=== PATIENT | male | born 1975 | race Caucasian/White ===

== ENCOUNTER 2018-02-18 00:48 | Observation (INO) | payer OTHER ==
[2018-02-18] MEDS ORDERED: NS 1,000 ML IV ONE ×3 (00:51→03:12)
--- NOTE | 2018-02-18 00:53 | EDPHY ---
H & P Time Seen by Provider: 02/18/18 00:52 HPI/ROS: HPI CHIEF COMPLAINT: Nausea vomiting, dehydration, syncope, IRONMAN HISTORY OF PRESENT ILLNESS: A 42-year-old male, he completed the [employer] man race today, he finished around 10:30 p.m. Or approximately an hour and half ago, he states while doing the swimming part of the race early this morning he thinks he may have aspirated some water, however he completed the race after the races over he felt dehydrated went to the medical tend he started having vomiting and felt globally weak. He did have a syncopal episode. He denies any chest pain or significant shortness of breath. EMS was called to the [place] [id number] and he was transported to the emergency room. 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 Past Surgical History: Denies surgical history Social History: Denies daily use of drugs alcohol tobacco. Family History: Bed noncontributory ROS REVIEW OF SYSTEMS: A comprehensive 10 point review of systems is otherwise negative aside from elements mentioned in the history of present illness. Exam Constitutional appears dehydrated, triage nursing summary reviewed, vital signs reviewed, awake/alert. Eyes normal conjunctivae and sclera, EOMI, PERRLA. HENT normal inspection, atraumatic, dry mucus membranes, no epistaxis, neck supple/ no meningismus, no raccoon eyes. Respiratory clear to auscultation bilaterally, normal breath sounds, no respiratory distress, no wheezing. Cardiovascular rate normal, regular rhythm, no murmur, no edema, distal pulses normal. Gastrointestinal soft, non-tender, no rebound, no guarding, normal bowel sounds, no distension, no pulsatile mass. Genitourinary no CVA tenderness. Musculoskeletal no midline vertebral tenderness, full range of motion, no calf swelling, no tenderness of extremities, no meningismus, good pulses, neurovascularly intact. Skin pink, warm, & dry, no rash, skin atraumatic. Neurologic awake, alert and oriented x 3, AAOx3, moves all 4 extremities equally, motor intact, sensory intact, CN II-XII intact, normal cerebellar, normal vision, normal speech. Psychiatric normal mood/affect. Heme/Lymph/Immune no lymphadenopathy. Differential Diagnosis: Includes but is not limited to in a particular order dehydration, electrolyte disturbance, rhabdomyolysis, aspiration, aspiration pneumonia Medical Decision Making: Plan for this patient IV establishment IV fluid bolus 1 L normal saline, check electrolytes sodium, chest x-ray, EKG urinalysis, check CK and re-evaluate. Re-evaluation: EKG interpretation by me on record in [employer] system. Impression time of EKG 57, sinus rhythm rate of 75 EKG appears to be WPW morphology. This is already known. Patient states he has a history of WPW asymptomatic. No acute ischemic change. 0218AM: Patient resting comfortably. Blood work has been reviewed shows rhabdomyolysis, dehydration, positive troponin. EKG shows the PW pattern. Chest x-ray one view reviewed no evidence of aspiration. Given the patient's elevated CK, syncopal episode, WPW on EKG patient be admitted to the hospital for observation and rehydration. Spoke with the hospitalist service Dr. El, Agrees to admit. Source: Patient, EMS Constitutional: Initial Vital Signs Temperature (C) 36.8 C 02/18/18 00:51 Heart Rate 77 02/18/18 00:51 Respiratory Rate 16 02/18/18 00:51 Blood Pressure 111/84 H 02/18/18 00:51 O2 Sat (%) 98 02/18/18 00:51 O2 Delivery Mode Room Air Allergies/Adverse Reactions: No Known Allergies Allergy (Unverified 02/18/18 00:55) Medical Decision Making - Data Points Laboratory Results: Laboratory Results 02/18/18 00:53 02/18/18 00:53 02/18/18 02/18/18 00:53 00:53 WBC 14.46 10^3/uL H 10^3/uL (3.80-9.50) RBC 4.46 10^6/uL 10^6/uL (4.40-6.38) Hgb 13.7 g/dL g/dL (13.7-17.5) Hct 39.1 % L % (40.0-51.0) MCV 87.7 fL fL (81.5-99.8) MCH 30.7 pg pg (27.9-34.1) MCHC 35.0 g/dL g/dL (32.4-36.7) RDW 11.9 % % (11.5-15.2) Plt Count 175 10^3/uL 10^3/uL (150-400) MPV 10.0 fL fL (8.7-11.7) Neut % (Auto) 85.7 % H % (39.3-74.2) Lymph % (Auto) 5.1 % L % (15.0-45.0) [place] % (Auto) 8.5 % % (4.5-13.0) Eos % (Auto) 0.1 % L % (0.6-7.6) Baso % (Auto) 0.3 % % (0.3-1.7) Nucleat RBC Rel Count 0.0 % % (0.0-0.2) Absolute Neuts (auto) 12.40 10^3/uL H 10^3/uL (1.70-6.50) Absolute Lymphs (auto) 0.74 10^3/uL L 10^3/uL (1.00-3.00) Absolute Monos (auto) 1.23 10^3/uL H 10^3/uL (0.30-0.80) Absolute Eos (auto) 0.01 10^3/uL L 10^3/uL (0.03-0.40) Absolute Basos (auto) 0.04 10^3/uL 10^3/uL (0.02-0.10) Absolute Nucleated RBC 0.00 10^3/uL 10^3/uL (0-0.01) Immature Gran % 0.3 % % (0.0-1.1) Immature Gran # 0.04 10^3/uL 10^3/uL (0.00-0.10) Sodium 133 mEq/L L mEq/L (135-145) Potassium 4.0 mEq/L mEq/L (3.3-5.0) Chloride 97 mEq/L mEq/L (97-110) Carbon Dioxide 24 mEq/l mEq/l (22-31) Anion Gap 12 mEq/L mEq/L (8-16) BUN 15 mg/dL mg/dL (7-23) Creatinine 1.0 mg/dL mg/dL (0.7-1.3) Estimated GFR > 60 Glucose 69 mg/dL L mg/dL (70-100) Calcium 8.4 mg/dL L mg/dL (8.5-10.4) Magnesium 1.7 mg/dL mg/dL (1.6-2.3) Total Bilirubin 2.4 mg/dL H mg/dL (0.1-1.4) Conjugated Bilirubin 0.6 mg/dL H mg/dL (0.0-0.5) Unconjugated Bilirubin 1.8 mg/dL H mg/dL (0.0-1.1) AST 118 IU/L H IU/L (17-59) ALT 64 IU/L IU/L (21-72) Alkaline Phosphatase 61 IU/L IU/L (38-126) Creatine Kinase 5663 IU/L H IU/L (0-224) CK-MB (CK-2) Fraction 26.30 ng/mL H ng/mL (0.00-4.55) CK-MB (CK-2) % 0.5 % % (0.0-4.0) Creatine Kinase Interp NEGATIVE (NEGATIVE) Troponin I 0.054 ng/mL H ng/mL (0.000-0.034) Total Protein 5.6 g/dL L g/dL (6.3-8.2) Albumin 3.5 g/dL g/dL (3.5-5.0) Medications Given: Discontinued Medications Sodium Chloride (Ns) 1,000 mls @ 0 mls/hr IV EDNOW ONE; Wide Open PRN Reason: Protocol Stop: 02/18/18 00:52 Last Admin: 02/18/18 00:58 Dose: 1,000 mls Sodium Chloride (Ns) 1,000 mls @ 0 mls/hr IV ONCE ONE PRN Reason: Wide Open Stop: 02/18/18 01:42 Last Admin: 02/18/18 01:49 Dose: 1,000 mls Departure - Departure Disposition: [facility] Inpatient Acute Clinical Impression: Dehydration Rhabdomyolysis Qualifiers: Rhabdomyolysis type: non-traumatic Qualified Code(s): M62.82 - Rhabdomyolysis Syncope Qualifiers: Syncope type: unspecified Qualified Code(s): R55 - Syncope and collapse Condition: Fair
--- NOTE | 2018-02-18 01:00 | CPEKG ---
Heart Rate: 75 RR Interval: 800 P-R Interval: 120 QRSD Interval: 124 QT Interval: 436 QTC Interval: 487 P [place]: 71 QRS [place]: -26 T Wave [place]: 44 EKG Severity - ABNORMAL ECG - EKG Impression: SINUS RHYTHM EKG Impression: VENT PREEXCITATION, LEFT ACCESSORY PATHWAY Electronically Signed By: Lester Lou 18-Feb-2018 06:54:33
[2018-02-18 01:11] LABS: PLATELET COUNT 175 10^3/uL (150-400)
[2018-02-18 01:34] LABS: CREATINE KINASE 5663 IU/L (0-224)
[2018-02-18] MEDS ORDERED: ACETAMINOPHEN 325 MG TAB PO PRN (01:57)
[2018-02-18] MEDS ORDERED: ONDANSETRON 4 MG/2 ML VIAL IVP PRN (01:57)
[2018-02-18] MEDS ORDERED: ONDANSETRON DISINTEGRATING 4 MG TAB PO PRN (01:57)
--- NOTE | 2018-02-18 04:34 | PDGENHP ---
History and Physical - Chief Complaint Syncope - History of Present Illness 42 yo M w/ hx of WPW p/w syncope. Patient completed the Iron[employer] today. Afterwards he felt weak so he went to the medical tent. While there he felt nauseous, dizzy, and may have had a syncopal event. He does not recall the details well but EMS was called and he was brought to the ED. At the time of my evaluation patient is feeling much better. Laboratory work-up notable for mild hyponatremia, indeterminate troponin, and elevated CK. He tells me he has never had any symptoms related to WPW, it was an incidental finding on ECG. History Information - Allergies/Home Medication List Allergies/Adverse Reactions: No Known Allergies Allergy (Unverified 02/18/18 00:55) I have personally reviewed and updated: family history, medical history - Past Medical History Additional medical history: [facility] Parkinson [place] - Surgical History Reports: hernia repair - Family History Positive for: CAD, hypertension - Social History Smoking Status: Never smoked Review of Systems Review of Systems: ROS: 10pt was reviewed & negative except for what was stated in HPI & below Physical Exam Physical Exam: Temp Pulse Resp BP Pulse Ox 36.9 C 80 17 112/67 94 02/18/18 03:45 02/18/18 03:45 02/18/18 03:45 02/18/18 03:45 02/18/18 03:45 Constitutional: no apparent distress, not in pain Eyes: PERRL, EOMI Ears, Nose, Mouth, Throat: moist mucous membranes, no oral mucosal ulcers Cardiovascular: regular rate and rhythym, no murmur, rub, or gallop Gastrointestinal: normoactive bowel sounds, soft, non-tender abdomen Skin: warm, normal color Musculoskeletal: full muscle strength, no muscle tenderness Neurologic: AAOx3, CN II-XII Intact Psychiatric: interacting appropriately, not anxious Lab Data & Imaging Review 02/18/18 00:53 02/18/18 00:53 WBC 14.46 10^3/uL (3.80-9.50) H 02/18/18 00:53 RBC 4.46 10^6/uL (4.40-6.38) 02/18/18 00:53 Hgb 13.7 g/dL (13.7-17.5) 02/18/18 00:53 Hct 39.1 % (40.0-51.0) L 02/18/18 00:53 MCV 87.7 fL (81.5-99.8) 02/18/18 00:53 MCH 30.7 pg (27.9-34.1) 02/18/18 00:53 MCHC 35.0 g/dL (32.4-36.7) 02/18/18 00:53 RDW 11.9 % (11.5-15.2) 02/18/18 00:53 Plt Count 175 10^3/uL (150-400) 02/18/18 00:53 MPV 10.0 fL (8.7-11.7) 02/18/18 00:53 Neut % (Auto) 85.7 % (39.3-74.2) H 02/18/18 00:53 Lymph % (Auto) 5.1 % (15.0-45.0) L 02/18/18 00:53 [place] % (Auto) 8.5 % (4.5-13.0) 02/18/18 00:53 Eos % (Auto) 0.1 % (0.6-7.6) L 02/18/18 00:53 Baso % (Auto) 0.3 % (0.3-1.7) 02/18/18 00:53 Nucleat RBC Rel Count 0.0 % (0.0-0.2) 02/18/18 00:53 Absolute Neuts (auto) 12.40 10^3/uL (1.70-6.50) H 02/18/18 00:53 Absolute Lymphs (auto) 0.74 10^3/uL (1.00-3.00) L 02/18/18 00:53 Absolute Monos (auto) 1.23 10^3/uL (0.30-0.80) H 02/18/18 00:53 Absolute Eos (auto) 0.01 10^3/uL (0.03-0.40) L 02/18/18 00:53 Absolute Basos (auto) 0.04 10^3/uL (0.02-0.10) 02/18/18 00:53 Absolute Nucleated RBC 0.00 10^3/uL (0-0.01) 02/18/18 00:53 Immature Gran % 0.3 % (0.0-1.1) 02/18/18 00:53 Immature Gran # 0.04 10^3/uL (0.00-0.10) 02/18/18 00:53 Sodium 133 mEq/L (135-145) L 02/18/18 00:53 Potassium 4.0 mEq/L (3.3-5.0) 02/18/18 00:53 Chloride 97 mEq/L (97-110) 02/18/18 00:53 Carbon Dioxide 24 mEq/l (22-31) 02/18/18 00:53 Anion Gap 12 mEq/L (8-16) 02/18/18 00:53 BUN 15 mg/dL (7-23) 02/18/18 00:53 Creatinine 1.0 mg/dL (0.7-1.3) 02/18/18 00:53 Estimated GFR > 60 02/18/18 00:53 Glucose 69 mg/dL (70-100) L 02/18/18 00:53 Calcium 8.4 mg/dL (8.5-10.4) L 02/18/18 00:53 Magnesium 1.7 mg/dL (1.6-2.3) 02/18/18 00:53 Total Bilirubin 2.4 mg/dL (0.1-1.4) H 02/18/18 00:53 Conjugated Bilirubin 0.6 mg/dL (0.0-0.5) H 02/18/18 00:53 Unconjugated Bilirubin 1.8 mg/dL (0.0-1.1) H 02/18/18 00:53 AST 118 IU/L (17-59) H 02/18/18 00:53 ALT 64 IU/L (21-72) 02/18/18 00:53 Alkaline Phosphatase 61 IU/L (38-126) 02/18/18 00:53 Creatine Kinase 5663 IU/L (0-224) H 02/18/18 00:53 CK-MB (CK-2) Fraction 26.30 ng/mL (0.00-4.55) H 02/18/18 00:53 CK-MB (CK-2) % 0.5 % (0.0-4.0) 02/18/18 00:53 Creatine Kinase Interp NEGATIVE (NEGATIVE) 02/18/18 00:53 Troponin I 0.054 ng/mL (0.000-0.034) H 02/18/18 00:53 Total Protein 5.6 g/dL (6.3-8.2) L 02/18/18 00:53 Albumin 3.5 g/dL (3.5-5.0) 02/18/18 00:53 Urine Color YELLOW 02/18/18 02:50 Urine Appearance CLEAR 02/18/18 02:50 Urine pH 5.0 (5.0-7.5) 02/18/18 02:50 Ur Specific [place] 1.018 (1.002-1.030) 02/18/18 02:50 Urine Protein 1+ (NEGATIVE) H 02/18/18 02:50 Urine Ketones 2+ (NEGATIVE) H 02/18/18 02:50 Urine Blood 1+ (NEGATIVE) H 02/18/18 02:50 Urine Nitrate NEGATIVE (NEGATIVE) 02/18/18 02:50 Urine Bilirubin NEGATIVE (NEGATIVE) 02/18/18 02:50 Urine Urobilinogen NEGATIVE EU (0.2-1.0) 02/18/18 02:50 Ur Leukocyte Esterase NEGATIVE (NEGATIVE) 02/18/18 02:50 Urine RBC NONE SEEN /hpf (0-3) 02/18/18 02:50 Urine WBC 1-3 /hpf (0-3) 02/18/18 02:50 Ur Epithelial Cells TRACE /lpf (NONE-1+) 02/18/18 02:50 Hyaline Casts 1-5 /lpf (0-1) 02/18/18 02:50 Urine Mucus TRACE /lpf (NONE-1+) 02/18/18 02:50 Urine Glucose NEGATIVE (NEGATIVE) 02/18/18 02:50 Visualized and Interpreted Chest x-ray results: Yes Chest X-Ray results: no infiltrate Visualized and Interpreted EKG results: Yes EKG Interpretation: Positive for: other (Short [place], delta wave) Assessment & Plan Assessment: 42 yo M w/ WPW completed Ironman today and suffered syncopal episode. Plan: 1. Syncope - Suspect multifactorial from dehydration, exhaustion, and electrolyte abnormalities related to extreme exertion. Patient feels improved after 3 L IVF. - Admit for observation noting hx of WPW - Monitor on telemetry 2. Hx WPW - Asymptomatic, ECG notable for shortened [place] and delta wave. - Monitor on telemetry 3. Indeterminate troponin - Denies chest pain, most likely exertional. - Trend enzymes 4. Elevated CK- Exertional, will trend. S/p 3 L IVF. Diet - Regular Code - Full Ppx - Low risk Dispo - Admit under observation status
[2018-02-18 07:46] LABS: PLATELET COUNT 182 10^3/uL (150-400)
[2018-02-18 07:58] VITALS: BP 107/67
[2018-02-18 08:14] LABS: CREATINE KINASE 4539 IU/L (0-224)
--- NOTE | 2018-02-18 09:46 | HOSPPROG ---
Hospitalist Progress Note Assessment/Plan: 42 yo M w possible syncope after Ironman home today see dc summary Subjective: tele: no events (interp by me). feels better Objective: Vital Signs Temp Pulse Resp BP Pulse Ox 37.0 C 80 12 107/67 94 02/18/18 07:09 02/18/18 07:09 02/18/18 07:09 02/18/18 07:09 02/18/18 07:09 Laboratory Results 02/18/18 07:32 02/18/18 07:32 02/17/18 02/18/18 02/19/18 05:59 05:59 05:59 Intake Total 3000 Balance 3000 - Physical Exam Constitutional: no apparent distress, appears nourished Eyes: PERRL, anicteric sclera Ears, Nose, Mouth, Throat: moist mucous membranes, hearing normal Cardiovascular: regular rate and rhythym, no murmur, rub, or gallop, No systolic murmur Respiratory: no respiratory distress, no rales or rhonchi Gastrointestinal: normoactive bowel sounds, soft, non-tender abdomen Genitourinary: no bladder fullness, No thomas in urethra Skin: warm, normal color Musculoskeletal: full muscle strength, no muscle tenderness Neurologic: AAOx3, sensation intact bilaterally Psychiatric: interacting appropriately, not anxious Lymph, Heme, Immunologic: no cervical LAD ICD10 Worksheet Patient Problems: Problems Problem Status Onset Dehydration Acute Rhabdomyolysis Acute Syncope Acute
--- NOTE | 2018-02-18 10:04 | ASDISCHSUM ---
Discharge Information Plan Status:Home with No Needs Medically Cleared to Leave:02/18/2018 Discharge Date:02/18/2018 CM D/C Disposition:Home, Routine, Self-Care ADT D/C Disposition: Projected Discharge Date:02/18/2018 Transportation at D/C: Discharge Delay Reason: Follow-Up Date:02/18/2018 Discharge Slot: Final Diagnosis: Placement Information Patient Contact Information Contact Name:ELBA Relationship: Address: Work Phone: City: [facility] Phone: State/GotGame Code: Email: Financial Information Financial Class:Self-Pay Primary Plan Desc:SELF PAY Primary Plan Number: Secondary Plan Desc: Secondary Plan Number: Assessment Information LACE LACE Acuity / Level of Answers: No Care: Did the patient have an inpatient admission? Comorbidities - select Answers: Other Notes: asymptomatic blakely all that apply sagar jacobo # of Emergency department Answers: 1-2 visits in the last 6 months Score: 2 Date Signed: 02/18/2018 10:03 AM Electronically Signed By:Juliana Watson RN Case Management Discharge Plan Note Case Management Discharge Discharge Order Complete? Answers: Yes Patient to Obtain Answers: Independently Medications Discharge Comments Notes: 02/18/2018 Case Management Note After completing the Ironman, pt had an epidose of syncope. Admitted for observation. There are no case management d/c needs identified. Pt discharged independent with follow up as directed. Date Signed: 02/18/2018 10:02 AM Electronically Signed By:Juliana Watson RN Intervention Information
--- NOTE | 2018-02-18 10:11 | GDS ---
[f rep st] DISCHARGE SUMMARY DISCHARGE DIAGNOSES: 1. Possible syncope following the iron man. 2. Mild hyponatremia. 3. Elevated CK not meeting definition of rhabdomyolysis. 4. Indeterminate troponin. 5. History of Mrpqu-Twjcdrycr-Ctgee syndrome. HOSPITAL COURSE: Please see admission history and physical by Dr. David El. The patient had possible syncope. He was wearing a leg compression recovery device. As he leaned back he felt nauseated, vomited and became confused but did not clearly have syncope. He showed up, he had a nonischemic EKG and no events on telemetry overnight. His CK was mildly elevated at 5000, trended down to 4500. His creatinine was actually 1.0, sodium modestly low at 133, that liliana to 139, troponin 0.54. He has had numerous dobutamine stress echoes given his Uywcm-Dkvinmvnq-Vzlga. He had no events on telemetry. He is discharged home. He is advised to seek care if he has exertional chest pain. /[id number]/MODL MTDD
== END 2018-02-18 11:03 | disposition home or self-care (01) ==
LOC: F2W 03:30
PROVIDERS: ADMIT Student in an Organized Health Care Education/Training Program; ATTEND Student in an Organized Health Care Education/Training Program
DX: E87.1 Hypo-osmolality and hyponatremia (principal); R11.2 Nausea with vomiting, unspecified; R74.8 Abnormal levels of other serum enzymes; I45.6 Pre-excitation syndrome
CPT/HCPCS: 71045; 93005; 99285; G0378